=== PATIENT | female | born 1935 | race Caucasian/White ===

== ENCOUNTER → 2017-09-01 | Outpatient (CLI) | payer OTHER | LOC: FIMAGING 11:50 | PROVIDERS: ATTEND Nurse Practitioner Women's Health | DX: Z12.31 Encounter for screening mammogram for malignant neoplasm of breast (principal); Z80.3 Family history of malignant neoplasm of breast | CPT/HCPCS: G0204 ==

== ENCOUNTER 2018-01-22 22:40 | Emergency (ER) | payer OTHER ==
[2018-01-22] MEDS ORDERED: IPRATROPIUM/ALBUTEROL 3 ML DEYVIAL ONE (23:08)
[2018-01-22] MEDS ORDERED: IPRATROPIUM/ALBUTEROL 3 ML DEYVIAL IH ONE (23:09)
[2018-01-22] MEDS ORDERED: predniSONE 20 MG TAB PO ONE (23:22)
--- NOTE | 2018-01-22 23:25 | EDPHY ---
H & P Stated Complaint: resp diff. & urine issues Time Seen by Provider: 01/22/18 22:56 HPI/ROS: HPI The patient presents with cough with wheezing for the last 2 weeks, presenting tonight to the emergency department because believe she is getting worse. She initially was sick about 2 weeks ago with what was thought to be a sinus infection with congestion and cough. She took a course of erythromycin though did not improve. She took Levaquin, however developed diarrhea and that was discontinued. She has been on 2 days of azithromycin now and using her DuoNeb every 4 hr without much improvement in her symptoms. She is wheezing and coughing significantly. She does not have any dyspnea on exertion. She had a chest x-ray performed as an outpatient earlier today which demonstrates segmental airway thickening without any infiltrate. She has not had a fever, sore throat, rhinorrhea. REVIEW OF SYSTEMS Constitutional: No fever, no chills. Eyes: No discharge. ENT: No sore throat. Cardiovascular: No chest pain, no palpitations. Respiratory: See HPI Gastrointestinal: No abdominal pain, no vomiting. Genitourinary: No hematuria. Musculoskeletal: No back pain. Skin: No rashes. Neurological: No headache. PMHx: Asthma, status post valvular replacement, pacemaker in place Soc Hx: Lives at home with PHYSICAL General Appearance: Alert, no distress Eyes: Pupils equal and round no pallor or injection ENT, Mouth: Mucous membranes moist Respiratory: There are no retractions, lungs are clear to auscultation Cardiovascular: Regular rate and rhythm Gastrointestinal: Abdomen is soft and non-tender, no masses, bowel sounds normal Neurological: A&O, moves all extremities Skin: Warm and dry, no rashes Musculoskeletal: Neck is supple non tender Extremities: symmetrical, full range of motion Psychiatric: Patient is oriented X 3, there is no agitation Source: Patient Exam Limitations: No limitations - Personal History Current Tetanus/Diphtheria Vaccine: Yes Current Tetanus Diphtheria and Acellular Pertussis (TDAP): Yes Tetanus Vaccine Date: 2009 - Medical/Surgical History Hx Asthma: Yes Hx Chronic Respiratory Disease: No Hx Diabetes: No Hx Cardiac Disease: Yes Hx Renal Disease: No Hx Cirrhosis: No Hx Alcoholism: No Hx HIV/AIDS: No Hx Splenectomy or Spleen Trauma: No Other PMH: pacemaker, asthma, atrial valve replacement, CVA x2, subdural hematoma,thyroidectomy, appy, hysterectomy, mitral valve replacement, ulcers, colitis, cholecystectomy, bleeding stomach ulcers. - Social History Smoking Status: Never smoked Constitutional: Initial Vital Signs Temperature (C) 36.4 C 01/22/18 22:43 Heart Rate 93 01/22/18 22:43 Respiratory Rate 16 01/22/18 22:43 Blood Pressure 168/99 H 01/22/18 22:43 O2 Sat (%) 92 01/22/18 22:43 O2 Delivery Mode Room Air O2 (L/minute) 2 Allergies/Adverse Reactions: budesonide [From Symbicort] Allergy (Severe, Verified 07/25/16 14:54) Swelling/neck,face,throat formoterol fumarate [From Symbicort] Allergy (Severe, Verified 07/25/16 14:54) Swelling/neck,face,throat atorvastatin calcium [From Lipitor] Allergy (Intermediate, Verified 07/25/16 14: 54) Other-Enter Comments cimetidine [Cimetidine] Allergy (Intermediate, Verified 07/25/16 14:54) Other-Enter Comments fluticasone propionate [From Advair Diskus] Allergy (Intermediate, Verified 14:54) Other-Enter Comments furosemide [From Lasix] Allergy (Intermediate, Verified 07/25/16 14:54) Other-Enter Comments salmeterol xinafoate [From Advair Diskus] Allergy (Intermediate, Verified 14:54) Other-Enter Comments cefuroxime axetil [From Ceftin] Allergy (Unknown, Verified 07/25/16 14:54) Hives cephalexin monohydrate [From Keflex] Allergy (Unknown, Verified 07/25/16 14:54) Hives erythromycin base [Erythromycin Base] Allergy (Unknown, Verified 07/25/16 14:54) Vomiting Lactase [From Dairy Ease] Allergy (Unknown, Verified 07/25/16 14:54) Congestion latex [Latex] Allergy (Unknown, Verified 07/25/16 14:54) Rash Penicillins Allergy (Unknown, Verified 07/25/16 14:54) Hives quinidine [Quinidine] Allergy (Unknown, Verified 07/25/16 14:54) Other-Enter Comments Sulfa (Sulfonamide Antibiotics) Allergy (Unknown, Verified 07/25/16 14:54) Hives ciprofloxacin [Ciprofloxacin] Allergy (Verified 07/25/16 14:54) Unknown montelukast sodium [From Singulair] Allergy (Verified 07/25/16 14:54) Other-Enter Comments pantoprazole [Pantoprazole] Allergy (Verified 07/25/16 14:54) Other-Enter Comments pantoprazole sodium [From Protonix] Allergy (Verified 07/25/16 14:54) Other-Enter Comments Jryyuur-Xij-Hzq Reductase Inhibitor Allergy (Verified 07/25/16 14:54) Unknown SOUR CREAM Allergy (Intermediate, Uncoded 09/17/11 12:18) Hives SUCRAFLATE Allergy (Intermediate, Uncoded 09/17/11 12:18) Other-Enter Comments "MYCINS" Allergy (Unknown, Uncoded 03/09/10 13:43) Vomiting PEANUT BUTTER Allergy (Unknown, Uncoded 03/09/10 13:43) Itching WARFARIN WITH PREDNISONE Allergy (Uncoded 09/17/11 12:18) Other-Enter Comments Home Medications: Medication Instructions Recorded Lanoxin 09/06/09 Plavix 75 mg PO DAILY 09/06/09 Synthroid 0.5 mg PO DAILY 09/06/09 Duoneb (RX) 09/04/15 Mucinex 09/04/15 predniSONE 40 mg PO DAILY 3 Days #6 tab 01/23/18 Medical Decision Making Differential Diagnosis: This is an 82-year-old female with history of asthma, atrial and mitral valve replacement with pacemaker in place who presents with 2 weeks of cough, congestion, wheezing. She has been on several antibiotics without any improvement. She is using nebulizers at home. Differential diagnosis includes asthma with exacerbation, viral URI, pneumonia, less likely pulmonary embolism. In the emergency department, patient was given prednisone, DuoNeb, albuterol. She was observed for nearly 3 hr with no improvement in her symptoms. On repeat examination she had audible expiratory wheezes in all lung pruitt which did not improve. She became quite tachycardic after receiving albuterol. I plan to admit her to the hospitalist for likely asthma exacerbation. D-dimer is slightly elevated though adjusted for age is negative. I feel pulmonary embolism is unlikely in her case. I consulted with the hospitalist Dr. Murcia who came to the emergency department to see the patient. The patient refused admission because she was concerned about cost associated with being admitted for observation verses inpatient stay. Her oxygen saturations are normal though she does continue to have wheezing. After the albuterol, she did develop atrial fibrillation with RVR. I gave her dose of diltiazem with improvement in her rate. She felt well enough to go home and will be given a prescription for prednisone to take in addition to her nebulizer treatments which she can use every 4 hr. She was advised to continue her azithromycin, though it is unclear if it is helping her symptoms at all. - Data Points Laboratory Results: Laboratory Results 01/23/18 00:45 01/23/18 00:45 01/23/18 01/23/18 01/23/18 00:45 00:45 00:45 WBC RBC Hgb Hct MCV MCH MCHC RDW Plt Count MPV Neut % (Auto) Lymph % (Auto) [place] % (Auto) Eos % (Auto) Baso % (Auto) Nucleat RBC Rel Count Absolute Neuts (auto) Absolute Lymphs (auto) Absolute Monos (auto) Absolute Eos (auto) Absolute Basos (auto) Absolute Nucleated RBC Immature Gran % Immature Gran # D-Dimer 0.71 ug/mLFEU H ug/mLFEU (0.00-0.50) Sodium 135 mEq/L mEq/L (135-145) Potassium 4.6 mEq/L mEq/L (3.5-5.2) Chloride 95 mEq/L L mEq/L (97-110) Carbon Dioxide 26 mEq/l mEq/l (22-31) Anion Gap 14 mEq/L mEq/L (8-16) BUN 21 mg/dL mg/dL (7-23) Creatinine 0.7 mg/dL mg/dL (0.6-1.0) Estimated GFR > 60 Glucose 108 mg/dL H mg/dL (70-100) Calcium 10.4 mg/dL mg/dL (8.5-10.4) Total Bilirubin 2.1 mg/dL H mg/dL (0.1-1.4) Conjugated Bilirubin 0.4 mg/dL mg/dL (0.0-0.5) Unconjugated Bilirubin 1.7 mg/dL H mg/dL (0.0-1.1) AST 36 IU/L IU/L (14-46) ALT 33 IU/L IU/L (9-52) Alkaline Phosphatase 116 IU/L IU/L (38-126) Total Protein 8.0 g/dL g/dL (6.3-8.2) Albumin 4.8 g/dL g/dL (3.5-5.0) Procalcitonin 0.04 ng/mL ng/mL (0.02-0.10) 01/23/18 00:45 WBC 7.38 10^3/uL 10^3/uL (3.80-9.50) RBC 4.86 10^6/uL 10^6/uL (4.18-5.33) Hgb 15.3 g/dL g/dL (12.6-16.3) Hct 43.7 % % (38.0-47.0) MCV 89.9 fL fL (81.5-99.8) MCH 31.5 pg pg (27.9-34.1) MCHC 35.0 g/dL g/dL (32.4-36.7) RDW 12.1 % % (11.5-15.2) Plt Count 185 10^3/uL 10^3/uL (150-400) MPV 8.9 fL fL (8.7-11.7) Neut % (Auto) 50.8 % % (39.3-74.2) Lymph % (Auto) 28.7 % % (15.0-45.0) [place] % (Auto) 10.0 % % (4.5-13.0) Eos % (Auto) 9.3 % H % (0.6-7.6) Baso % (Auto) 0.9 % % (0.3-1.7) Nucleat RBC Rel Count 0.0 % % (0.0-0.2) Absolute Neuts (auto) 3.74 10^3/uL 10^3/uL (1.70-6.50) Absolute Lymphs (auto) 2.12 10^3/uL 10^3/uL (1.00-3.00) Absolute Monos (auto) 0.74 10^3/uL 10^3/uL (0.30-0.80) Absolute Eos (auto) 0.69 10^3/uL H 10^3/uL (0.03-0.40) Absolute Basos (auto) 0.07 10^3/uL 10^3/uL (0.02-0.10) Absolute Nucleated RBC 0.00 10^3/uL 10^3/uL (0-0.01) Immature Gran % 0.3 % % (0.0-1.1) Immature Gran # 0.02 10^3/uL 10^3/uL (0.00-0.10) D-Dimer Sodium Potassium Chloride Carbon Dioxide Anion Gap BUN Creatinine Estimated GFR Glucose Calcium Total Bilirubin Conjugated Bilirubin Unconjugated Bilirubin AST ALT Alkaline Phosphatase Total Protein Albumin Procalcitonin Medications Given: Discontinued Medications Albuterol (Proventil Neb) 6 ml IH EDNOW ONE Stop: 01/22/18 23:37 Last Admin: 01/22/18 23:38 Dose: 6 ml Albuterol (Proventil Neb) 3 ml IH Q4HRS JEANMARIE Stop: 07/22/18 01:59 Last Admin: 01/23/18 02:52 Dose: Not Given Albuterol/Ipratropium (Duoneb) 3 ml IH EDNOW ONE Stop: 01/22/18 23:10 Last Admin: 01/22/18 23:12 Dose: 3 ml Diltiazem HCl (Cardizem) 15 mg IV EDNOW ONE Stop: 01/23/18 02:16 Last Admin: 01/23/18 02:08 Dose: 15 mg Sodium Chloride (Ns) 250 mls @ 1,000 mls/hr IV EDNOW ONE PRN Reason: Protocol Stop: 01/23/18 02:17 Last Admin: 01/23/18 02:07 Dose: 250 mls Prednisone (Prednisone) 40 mg PO EDNOW ONE Stop: 01/22/18 23:23 Last Admin: 01/22/18 23:38 Dose: 40 mg Departure - Departure Disposition: Home, Routine, Self-Care Clinical Impression: Atrial fibrillation with RVR Exacerbation of asthma Qualifiers: Asthma severity: moderate Asthma persistence: unspecified Qualified Code(s): J45.901 - Unspecified asthma with (acute) exacerbation Acute bronchitis Qualifiers: Bronchitis organism: unspecified organism Qualified Code(s): J20.9 - Acute bronchitis, unspecified Condition: Fair Instructions: Bronchospasm (ED) Additional Instructions: Please return to the emergency department if you are worse in any way. Referrals: Laura Sterling [Primary Care Provider] - As per Instructions Prescriptions: predniSONE 40 mg PO DAILY 3 Days #6 tab
[2018-01-22] MEDS ORDERED: ALBUTEROL 3 ML DEYVIAL ONE (23:35)
[2018-01-22] MEDS ORDERED: ALBUTEROL 3 ML DEYVIAL IH ONE (23:36)
--- NOTE | 2018-01-23 00:33 | CPEKG ---
Heart Rate: 140 RR Interval: 429 QRSD Interval: 142 QT Interval: 340 QTC Interval: 519 QRS [place]: -37 T Wave [place]: 246 EKG Severity - ABNORMAL ECG - EKG Impression: ATRIAL FIBRILLATION, V-RATE 101-170 EKG Impression: PAIRED VENTRICULAR PREMATURE COMPLEXES EKG Impression: ABERRANT COMPLEX, POSSIBLY SUPRAVENTRICULAR EKG Impression: NONSPECIFIC IVCD WITH LAD EKG Impression: LVH WITH SECONDARY REPOLARIZATION ABNORMALITY Electronically Signed By: Roula Kenney 23-Jan-2018 07:05:35
[2018-01-23 01:01] LABS: PLATELET COUNT 185 10^3/uL (150-400)
[2018-01-23] MEDS ORDERED: DILTIAZEM 25 MG/5 ML VIAL IVP ONE (01:32)
[2018-01-23] MEDS ORDERED: ALBUTEROL 3 ML DEYVIAL IH PRN (01:34)
[2018-01-23] MEDS ORDERED: ONDANSETRON 4 MG/2 ML VIAL IVP PRN (01:34)
[2018-01-23] MEDS ORDERED: ONDANSETRON DISINTEGRATING 4 MG TAB PO PRN (01:34)
[2018-01-23] MEDS ORDERED: ACETAMINOPHEN 325 MG TAB PO PRN (01:34)
[2018-01-23 01:53] VITALS: TEMP 98.1
[2018-01-23] MEDS ORDERED: DILTIAZEM 50 MG/10 ML VIAL IV ONE ×2 (01:59→02:15)
[2018-01-23] MEDS ORDERED: ALBUTEROL 3 ML DEYVIAL IH SCH (02:00)
[2018-01-23] MEDS ORDERED: NS 250 ML IV ONE (02:03)
[2018-01-23 02:49] VITALS: BP 122/67; PULSE 92; RESP 18; O2SAT 92
[2018-01-23] MEDS ORDERED: ENOXAPARIN 40 MG/0.4 ML SYR SC SCH (09:00)
[2018-01-23] MEDS ORDERED: predniSONE 20 MG TAB PO SCH (09:00)
== END 2018-01-23 02:48 | disposition home or self-care (01) ==
LOC: UNDOADMOB 01-23 01:33 → INTOOBSV 01-23 01:33 → UNDOADMOB 01-23 01:34
DX: J45.901 Unspecified asthma with (acute) exacerbation (principal); I48.91 Unspecified atrial fibrillation; J20.9 Acute bronchitis, unspecified; E86.9 Volume depletion, unspecified; Z86.73 Personal history of transient ischemic attack (TIA), and cerebral infarction without residual deficits; Z91.010 Allergy to peanuts; Z95.0 Presence of cardiac pacemaker; Z91.040 Latex allergy status
CPT/HCPCS: 93005; 96361; 96374; 99284; J7512; J7613

== ENCOUNTER → 2018-01-22 | Outpatient (CLI) | payer OTHER | LOC: FIMAGING 14:58 | PROVIDERS: ATTEND Physician Assistant Medical | DX: J98.4 Other disorders of lung (principal); J45.901 Unspecified asthma with (acute) exacerbation ==

== ENCOUNTER → 2018-03-18 | Outpatient (CLI) | payer OTHER | LOC: FIMAGING 16:46 | PROVIDERS: ATTEND Family Medicine | DX: J32.9 Chronic sinusitis, unspecified (principal) ==

== ENCOUNTER → 2018-09-02 | Outpatient (CLI) | payer OTHER | LOC: FIMAGING 09:59 | PROVIDERS: ATTEND Family Medicine | DX: Z12.31 Encounter for screening mammogram for malignant neoplasm of breast (principal); Z80.3 Family history of malignant neoplasm of breast ==

== ENCOUNTER 2018-09-10 16:26 | Emergency (ER) | payer OTHER ==
--- NOTE | 2018-09-10 17:09 | EDPHY ---
H & P Stated Complaint: mechanical fall head trauma/ pelvic pain lwrist pain/ on plavix Time Seen by Provider: 09/10/18 17:08 HPI/ROS: CHIEF COMPLAINT: Head injury HISTORY OF PRESENT ILLNESS: 83-year-old female via private vehicle with her complaining of facial and head injury after she slipped on gravel while leaving the [facility]. She fell onto her face, head. She is complaining of headache , forehead laceration, left mandible pain, left wrist pain, left hand pain, left tibia and fibula pain, right pelvic pain, right knee pain. She is unable to ambulate. Her carried her into the car. She comes back to the room via a wheelchair. She denies acute alcohol or drug use. This was a mechanical non syncopal episode. PRIMARY CARE PROVIDER: Dr. 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 denies alcohol use at time of incident PHYSICAL EXAM 1) GENERAL: Well-developed, well-nourished, alert and oriented. Appears uncomfortable . 2) HEAD: Normocephalic, atraumatic 3) HEENT: Pupils equal, round, reactive to light bilaterally. Left frontal hematoma, left frontal laceration on left lateral eyebrow laceration. No hyphema. No proptosis. No evidence of orbital injury. Negative Horners. Nasopharynx, oropharynx, clear. No deformity or angulation of nose. No septal hematoma. No rhinorrhea. No oral trauma. Ears bilaterally with normal tympanic membranes. No hemotympanum. No fluid or blood in the external auditory canal. No raccoon eyes. No Partida sign. Teeth are normally aligned with no gross malocclusion, TMJ bilaterally nontender, facial bones nontender including the zygomatic arch, maxilla mandible. 4) NECK: No cervical collar is on. Posterior cervical spine is nontender, no stepoff, no effusion. Full range of motion which does not elicit any midline cervical spine pain, no posterior midline tenderness, no step-off. Cervical collar is placed due to mechanism 5) LUNGS: Clear to auscultation bilaterally, no wheezes, no rhonchi, no retractions. No obvious signs of trauma. No chest wall pain. No flaring, no grunting. Moving symmetrically. No crepitus. 6) HEART: Regular rate and rhythm, 7) ABDOMEN: No guarding, no rebound, no focal tenderness, no peritoneal signs, no signs of trauma, no ecchymosis 8) MUSCULOSKELETAL: Left upper extremity: The left dorsal wrist skin tear, hematoma, underlying pain. No deformity. Right upper extremity: No evidence of trauma no pain Right lower extremity: No deformity no angulation. Tender to palpation right greater trochanteric and right inguinal region. Buttock nontender. Right knee tender to palpation with limited range of motion secondary to pain. No deformity no angulation. Distal neurovascular status intact packed with DP PT pulses present and brisk. Left lower extremity: Tender to palpation left distal tibia and fibula and left ankle. No proximal tibia or fibula pain. No knee pain. No hip pain. No shortening no malrotation. DP PT pulses present and brisk. 9) BACK: No midline vertebral tenderness, no fluctuance, no step-off, no obvious trauma, no visual or palpable abnormality. 10) SKIN: Forehead laceration DIFFERENTIAL DIAGNOSIS: Not necessarily in any particular order, my differential diagnosis includes, but is not limited to, concussion, skull fracture, intraparenchymal contusion, subarachnoid, subdural and epidural hematoma. The patient understands that this diagnosis is provisional and can never be 100% accurate. - Personal History Current Tetanus Diphtheria and Acellular Pertussis (TDAP): Yes Tetanus Vaccine Date: 2009 - Medical/Surgical History Hx Asthma: Yes Hx Chronic Respiratory Disease: No Hx Diabetes: No Hx Cardiac Disease: Yes Hx Renal Disease: No Hx Cirrhosis: No Hx Alcoholism: No Hx HIV/AIDS: No Hx Splenectomy or Spleen Trauma: No Other PMH: pacemaker, asthma, atrial valve replacement, CVA x2, subdural hematoma,thyroidectomy, appy, hysterectomy, mitral valve replacement, ulcers, colitis, cholecystectomy, bleeding stomach ulcers. - Social History Smoking Status: Never smoked Constitutional: Initial Vital Signs Temperature (C) 36.7 C 09/10/18 16:45 Heart Rate 88 09/10/18 16:45 Respiratory Rate 18 09/10/18 16:45 Blood Pressure 170/98 H 09/10/18 16:45 O2 Sat (%) 94 09/10/18 16:45 O2 Delivery Mode Room Air Allergies/Adverse Reactions: budesonide [From Symbicort] Allergy (Severe, Verified 09/10/18 16:44) Swelling/neck,face,throat formoterol fumarate [From Symbicort] Allergy (Severe, Verified 09/10/18 16:44) Swelling/neck,face,throat atorvastatin calcium [From Lipitor] Allergy (Intermediate, Verified 09/10/18 16: 44) Other-Enter Comments cimetidine [Cimetidine] Allergy (Intermediate, Verified 09/10/18 16:44) Other-Enter Comments fluticasone propionate [From Advair Diskus] Allergy (Intermediate, Verified 16:44) Other-Enter Comments furosemide [From Lasix] Allergy (Intermediate, Verified 09/10/18 16:44) Other-Enter Comments salmeterol xinafoate [From Advair Diskus] Allergy (Intermediate, Verified 16:44) Other-Enter Comments cefuroxime axetil [From Ceftin] Allergy (Unknown, Verified 09/10/18 16:44) Hives cephalexin monohydrate [From Keflex] Allergy (Unknown, Verified 09/10/18 16:44) Hives erythromycin base [Erythromycin Base] Allergy (Unknown, Verified 09/10/18 16:44) Vomiting Lactase [From Dairy Ease] Allergy (Unknown, Verified 09/10/18 16:44) Congestion latex [Latex] Allergy (Unknown, Verified 09/10/18 16:44) Rash Penicillins Allergy (Unknown, Verified 09/10/18 16:44) Hives quinidine [Quinidine] Allergy (Unknown, Verified 09/10/18 16:44) Other-Enter Comments Sulfa (Sulfonamide Antibiotics) Allergy (Unknown, Verified 09/10/18 16:44) Hives ciprofloxacin [Ciprofloxacin] Allergy (Verified 09/10/18 16:44) Unknown montelukast sodium [From Singulair] Allergy (Verified 09/10/18 16:44) Other-Enter Comments pantoprazole [Pantoprazole] Allergy (Verified 09/10/18 16:44) Other-Enter Comments pantoprazole sodium [From Protonix] Allergy (Verified 09/10/18 16:44) Other-Enter Comments Lwtqiuz-Lrj-Lnu Reductase Inhibitor Allergy (Verified 09/10/18 16:44) Unknown SOUR CREAM Allergy (Intermediate, Uncoded 09/17/11 12:18) Hives SUCRAFLATE Allergy (Intermediate, Uncoded 09/17/11 12:18) Other-Enter Comments "MYCINS" Allergy (Unknown, Uncoded 03/09/10 13:43) Vomiting PEANUT BUTTER Allergy (Unknown, Uncoded 03/09/10 13:43) Itching WARFARIN WITH PREDNISONE Allergy (Uncoded 09/17/11 12:18) Other-Enter Comments Home Medications: Medication Instructions Recorded Clopidogrel Bisulfate [Plavix (*)] 75 mg PO DAILY 09/10/18 Digoxin [Lanoxin] 250 mcg PO DAILY 09/10/18 Levothyroxine [Synthroid 75 mcg 75 mcg PO DAILY06 09/10/18 (*)] diphenhydrAMINE [Benadryl 25 MG 25 mg PO Q6H PRN 09/10/18 (*)] Medical Decision Making - Diagnostics Imaging Results: Imaging Impressions Ankle X-Ray 09/10/18 00:00 Impression: Nothing acute identified. 2. Right Tibia-Fibula, 2 views History: Pain post fall today Findings: No fracture is identified. There is a likely chronic small osteochondral defect of the mid talar dome seen on the lateral view. There is soft tissue swelling of the calf. Impression: No fracture. 3. Left Ankle, 3 views History: Fall today, pain Findings: No fracture or malalignment is identified. There is no ankle joint effusion. Impression: Negative. 4. AP Portable Chest, 18:02 History: Pain post fall today Findings: The patient is rotated toward the left. There is a moderate thoracolumbar dextroscoliosis. There is no pneumothorax pleural effusion or pulmonary contusion. No obvious acute fracture is identified. A left chest wall pacer device and associated bipolar pacer leads are present. Median sternotomy wires and CABG clips are also present. There may be, mild cardiomegaly. There is no evidence for CHF. There is atherosclerotic calcification in the aortic arch. Impression: No posttraumatic abnormality identified. 5. Left Wrist, 3 views History: Pain post fall today Findings: The pisiform bone is palmary dislocated from the triquetrum. There is possibly a rotatory subluxation of the navicular bone. I do not identify an acute fracture. Impression: 1. Pisiform dislocation 2. Suspect rotatory subluxation of the navicular. 6. Right Ankle, 3 views History: Pain post fall today. Findings: No acute fracture, malalignment or ankle joint effusion is identified. 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 Impression: Nothing acute identified. Cervical Spine CT 09/10/18 17:18 Impression: 1. No acute cervical spine fracture identified. Results called to Chai Moss PA-C, 7:[address] 09/10/18 17:18 Impression: 1. Negative for fracture. Results called to Chai Moss PA-C, at 7:[address] 09/10/18 17:18 Impression: Stable noncontrast CT of the brain large areas of encephalomalacia in the temporal regions bilaterally. Subcutaneous hemorrhage over the left orbit and extending into the frontal region. Results called to Chai Moss PA-C at the time of the interpretation. Chest X-Ray 09/10/18 17:19 Impression: Nothing acute identified. 2. Right Tibia-Fibula, 2 views History: Pain post fall today Findings: No fracture is identified. There is a likely chronic small osteochondral defect of the mid talar dome seen on the lateral view. There is soft tissue swelling of the calf. Impression: No fracture. 3. Left Ankle, 3 views History: Fall today, pain Findings: No fracture or malalignment is identified. There is no ankle joint effusion. Impression: Negative. 4. AP Portable Chest, 18:02 History: Pain post fall today Findings: The patient is rotated toward the left. There is a moderate thoracolumbar dextroscoliosis. There is no pneumothorax pleural effusion or pulmonary contusion. No obvious acute fracture is identified. A left chest wall pacer device and associated bipolar pacer leads are present. Median sternotomy wires and CABG clips are also present. There may be, mild cardiomegaly. There is no evidence for CHF. There is atherosclerotic calcification in the aortic arch. Impression: No posttraumatic abnormality identified. 5. Left Wrist, 3 views History: Pain post fall today Findings: The pisiform bone is palmary dislocated from the triquetrum. There is possibly a rotatory subluxation of the navicular bone. I do not identify an acute fracture. Impression: 1. Pisiform dislocation 2. Suspect rotatory subluxation of the navicular. 6. Right Ankle, 3 views History: Pain post fall today. Findings: No acute fracture, malalignment or ankle joint effusion is identified. 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 Impression: Nothing acute identified. Knee X-Ray 09/10/18 17:19 Impression: Nothing obviously acute identified. Pelvis X-Ray 09/10/18 17:19 Impression: Nothing acute identified. 2. Right Tibia-Fibula, 2 views History: Pain post fall today Findings: No fracture is identified. There is a likely chronic small osteochondral defect of the mid talar dome seen on the lateral view. There is soft tissue swelling of the calf. Impression: No fracture. 3. Left Ankle, 3 views History: Fall today, pain Findings: No fracture or malalignment is identified. There is no ankle joint effusion. Impression: Negative. 4. AP Portable Chest, 18:02 History: Pain post fall today Findings: The patient is rotated toward the left. There is a moderate thoracolumbar dextroscoliosis. There is no pneumothorax pleural effusion or pulmonary contusion. No obvious acute fracture is identified. A left chest wall pacer device and associated bipolar pacer leads are present. Median sternotomy wires and CABG clips are also present. There may be, mild cardiomegaly. There is no evidence for CHF. There is atherosclerotic calcification in the aortic arch. Impression: No posttraumatic abnormality identified. 5. Left Wrist, 3 views History: Pain post fall today Findings: The pisiform bone is palmary dislocated from the triquetrum. There is possibly a rotatory subluxation of the navicular bone. I do not identify an acute fracture. Impression: 1. Pisiform dislocation 2. Suspect rotatory subluxation of the navicular. 6. Right Ankle, 3 views History: Pain post fall today. Findings: No acute fracture, malalignment or ankle joint effusion is identified. 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 Impression: Nothing acute identified. Ankle X-Ray 09/10/18 17:20 Impression: Nothing acute identified. 2. Right Tibia-Fibula, 2 views History: Pain post fall today Findings: No fracture is identified. There is a likely chronic small osteochondral defect of the mid talar dome seen on the lateral view. There is soft tissue swelling of the calf. Impression: No fracture. 3. Left Ankle, 3 views History: Fall today, pain Findings: No fracture or malalignment is identified. There is no ankle joint effusion. Impression: Negative. 4. AP Portable Chest, 18:02 History: Pain post fall today Findings: The patient is rotated toward the left. There is a moderate thoracolumbar dextroscoliosis. There is no pneumothorax pleural effusion or pulmonary contusion. No obvious acute fracture is identified. A left chest wall pacer device and associated bipolar pacer leads are present. Median sternotomy wires and CABG clips are also present. There may be, mild cardiomegaly. There is no evidence for CHF. There is atherosclerotic calcification in the aortic arch. Impression: No posttraumatic abnormality identified. 5. Left Wrist, 3 views History: Pain post fall today Findings: The pisiform bone is palmary dislocated from the triquetrum. There is possibly a rotatory subluxation of the navicular bone. I do not identify an acute fracture. Impression: 1. Pisiform dislocation 2. Suspect rotatory subluxation of the navicular. 6. Right Ankle, 3 views History: Pain post fall today. Findings: No acute fracture, malalignment or ankle joint effusion is identified. 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 Impression: Nothing acute identified. Hand X-Ray 09/10/18 17:20 Impression: Transverse mildly displaced fracture proximal aspect, proximal phalanx, left fifth finger. Tibia/Fibula X-Ray 09/10/18 17:20 Impression: Nothing acute identified. 2. Right Tibia-Fibula, 2 views History: Pain post fall today Findings: No fracture is identified. There is a likely chronic small osteochondral defect of the mid talar dome seen on the lateral view. There is soft tissue swelling of the calf. Impression: No fracture. 3. Left Ankle, 3 views History: Fall today, pain Findings: No fracture or malalignment is identified. There is no ankle joint effusion. Impression: Negative. 4. AP Portable Chest, 18:02 History: Pain post fall today Findings: The patient is rotated toward the left. There is a moderate thoracolumbar dextroscoliosis. There is no pneumothorax pleural effusion or pulmonary contusion. No obvious acute fracture is identified. A left chest wall pacer device and associated bipolar pacer leads are present. Median sternotomy wires and CABG clips are also present. There may be, mild cardiomegaly. There is no evidence for CHF. There is atherosclerotic calcification in the aortic arch. Impression: No posttraumatic abnormality identified. 5. Left Wrist, 3 views History: Pain post fall today Findings: The pisiform bone is palmary dislocated from the triquetrum. There is possibly a rotatory subluxation of the navicular bone. I do not identify an acute fracture. Impression: 1. Pisiform dislocation 2. Suspect rotatory subluxation of the navicular. 6. Right Ankle, 3 views History: Pain post fall today. Findings: No acute fracture, malalignment or ankle joint effusion is identified. 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 Impression: Nothing acute identified. Wrist X-Ray 09/10/18 17:20 Impression: Nothing acute identified. 2. Right Tibia-Fibula, 2 views History: Pain post fall today Findings: No fracture is identified. There is a likely chronic small osteochondral defect of the mid talar dome seen on the lateral view. There is soft tissue swelling of the calf. Impression: No fracture. 3. Left Ankle, 3 views History: Fall today, pain Findings: No fracture or malalignment is identified. There is no ankle joint effusion. Impression: Negative. 4. AP Portable Chest, 18:02 History: Pain post fall today Findings: The patient is rotated toward the left. There is a moderate thoracolumbar dextroscoliosis. There is no pneumothorax pleural effusion or pulmonary contusion. No obvious acute fracture is identified. A left chest wall pacer device and associated bipolar pacer leads are present. Median sternotomy wires and CABG clips are also present. There may be, mild cardiomegaly. There is no evidence for CHF. There is atherosclerotic calcification in the aortic arch. Impression: No posttraumatic abnormality identified. 5. Left Wrist, 3 views History: Pain post fall today Findings: The pisiform bone is palmary dislocated from the triquetrum. There is possibly a rotatory subluxation of the navicular bone. I do not identify an acute fracture. Impression: 1. Pisiform dislocation 2. Suspect rotatory subluxation of the navicular. 6. Right Ankle, 3 views History: Pain post fall today. Findings: No acute fracture, malalignment or ankle joint effusion is identified. 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 Impression: Nothing acute identified. Images reviewed myself Procedures: Procedure: Laceration repair 1. I explained the indications, risks and benefits for both laceration repair and anesthetic administration. Verbal consent was obtained from the patient. The 2.5 cm laceration on the left forehead was anesthetized using 0.5% bupivicaine with epinephrine. After anesthetic administered the patient was observed for a period of time and had no apparent adverse effects. The wound was cleaned, prepped, draped in normal sterile fashion and explored to its base. No foreign body seen, no foreign bodies palpated. There were no deep structures involved. The wound was repaired with 4 simple interrupted 6-0 prolene sutures. The wound repair was complex. The procedure was performed by myself. Patient has been informed that scarring will occur, although efforts have been made to minimize this. Procedure: Laceration repair 2. I explained the indications, risks and benefits for both laceration repair and anesthetic administration. Verbal consent was obtained from the patient. The 1.5 cm laceration on the left lateral eyebrow region was anesthetized using 0.5 % bupivicaine with epinephrine. Does not extend to the lid margin. After anesthetic administered the patient was observed for a period of time and had no apparent adverse effects. The wound was cleaned, prepped, draped in normal sterile fashion and explored to its base. No foreign body seen, no foreign bodies palpated. There were no deep structures involved. No tendon injury was identified. The wound was repaired with 3 simple interrupted 6 0 Prolene suture. The wound repair was simple. The procedure was performed by myself. Patient has been informed that scarring will occur, although efforts have been made to minimize this. ED Course/Re-evaluation: 5:15 p.m.: Head CT ordered in this patient for trauma for the following indication: Greater than 65 years old, anticoagulated 8:17 p.m.: Electronic consultation with Dr. Maicol Rosario, on-call hand surgery for the patient's pisiform dislocation. He recommended splinting and follow- up. The patient is also noted to have a closed fracture of her proximal 5th phalanx of left hand. She does have a superficial skin tear on the dorsum of the left wrist. Doubt open fracture or open dislocation. Patient was re-evaluated with serial examinations, she is answering questions appropriately. She would like to be discharged. Patient has been offered admission on numerous instances. She and have declined this. feels comfortable caring for her at home. She was able to ambulate to the bathroom by herself although she did see need some assistance from staff getting out of bed. feels secure that he can take care of her at home. I believe him and his /patient to have decision- making capacity. Sutures to be removed in 5 days. - Data Points Laboratory Results: Laboratory Results 09/10/18 17:30 09/10/18 17:30 09/10/18 09/10/18 09/10/18 17:35 17:30 17:30 WBC RBC Hgb POC Hgb 15.3 gm/dL gm/dL (12.6-16.3) Hct POC Hct 45 % % (38-47) MCV MCH MCHC RDW Plt Count MPV Neut % (Auto) Lymph % (Auto) Pettis % (Auto) Eos % (Auto) Baso % (Auto) Nucleat RBC Rel Count Absolute Neuts (auto) Absolute Lymphs (auto) Absolute Monos (auto) Absolute Eos (auto) Absolute Basos (auto) Absolute Nucleated RBC Immature Gran % Immature Gran # PT 13.1 SEC SEC (12.0-15.0) INR 0.97 (0.83-1.16) APTT 28.7 SEC SEC (23.0-38.0) POC Sodium 135 mEq/L mEq/L (135-145) Sodium 133 mEq/L L mEq/L (135-145) POC Potassium 4.1 mEq/L mEq/L (3.3-5.0) Potassium 4.4 mEq/L mEq/L (3.3-5.0) POC Chloride 96 mEq/L L mEq/L (97-110) Chloride 96 mEq/L L mEq/L (97-110) Carbon Dioxide 27 mEq/l mEq/l (22-31) Anion Gap 10 mEq/L mEq/L (6-14) POC BUN 19 mg/dL mg/dL (7-23) BUN 19 mg/dL mg/dL (7-23) Creatinine 0.9 mg/dL mg/dL (0.6-1.0) POC Creatinine 0.9 mg/dL mg/dL (0.6-1.0) Estimated GFR 60 Glucose 100 mg/dL mg/dL (70-100) POC Glucose 102 mg/dL H mg/dL (70-100) Calcium 10.3 mg/dL mg/dL (8.5-10.4) 09/10/18 17:30 WBC 6.29 10^3/uL 10^3/uL (3.80-9.50) RBC 4.69 10^6/uL 10^6/uL (4.18-5.33) Hgb 14.9 g/dL g/dL (12.6-16.3) POC Hgb Hct 42.7 % % (38.0-47.0) POC Hct MCV 91.0 fL fL (81.5-99.8) MCH 31.8 pg pg (27.9-34.1) MCHC 34.9 g/dL g/dL (32.4-36.7) RDW 12.7 % % (11.5-15.2) Plt Count 202 10^3/uL 10^3/uL (150-400) MPV 8.7 fL fL (8.7-11.7) Neut % (Auto) 69.2 % % (39.3-74.2) Lymph % (Auto) 18.4 % % (15.0-45.0) Pettis % (Auto) 9.9 % % (4.5-13.0) Eos % (Auto) 1.7 % % (0.6-7.6) Baso % (Auto) 0.6 % % (0.3-1.7) Nucleat RBC Rel Count 0.0 % % (0.0-0.2) Absolute Neuts (auto) 4.35 10^3/uL 10^3/uL (1.70-6.50) Absolute Lymphs (auto) 1.16 10^3/uL 10^3/uL (1.00-3.00) Absolute Monos (auto) 0.62 10^3/uL 10^3/uL (0.30-0.80) Absolute Eos (auto) 0.11 10^3/uL 10^3/uL (0.03-0.40) Absolute Basos (auto) 0.04 10^3/uL 10^3/uL (0.02-0.10) Absolute Nucleated RBC 0.00 10^3/uL 10^3/uL (0-0.01) Immature Gran % 0.2 % % (0.0-1.1) Immature Gran # 0.01 10^3/uL 10^3/uL (0.00-0.10) PT INR APTT POC Sodium Sodium POC Potassium Potassium POC Chloride Chloride Carbon Dioxide Anion Gap POC BUN BUN Creatinine POC Creatinine Estimated GFR Glucose POC Glucose Calcium Point of Care Test Results: Chemistry 09/10/18 17:35 POC Sodium 135 mEq/L mEq/L (135-145) POC Potassium 4.1 mEq/L mEq/L (3.3-5.0) POC Chloride 96 mEq/L L mEq/L (97-110) POC BUN 19 mg/dL mg/dL (7-23) POC Creatinine 0.9 mg/dL mg/dL (0.6-1.0) POC Glucose 102 mg/dL H mg/dL (70-100) ISTAT H&H 09/10/18 17:35 POC Hgb 15.3 gm/dL gm/dL (12.6-16.3) POC Hct 45 % % (38-47) Departure - Departure Disposition: Home, Routine, Self-Care Clinical Impression: Pisiform dislocation Head injury Qualifiers: Encounter type: initial encounter Qualified Code(s): S09.90XA - Unspecified injury of head, initial encounter Finger fracture, left Qualifiers: Encounter type: initial encounter Finger: little finger Fracture type: closed Phalanx: proximal Fracture alignment: displaced Qualified Code(s): S62.617A - Displaced fracture of proximal phalanx of left little finger, initial encounter for closed fracture Facial laceration Qualifiers: Encounter type: initial encounter Qualified Code(s): S01.81XA - Laceration without foreign body of other part of head, initial encounter Condition: Good Instructions: Laceration (ED), Head Injury (ED) Additional Instructions: ALTHOUGH THERE IS NO EVIDENCE OF SERIOUS HEAD INJURY AT THIS TIME, DELAYED SIGNS CAN APPEAR 24 TO 48 HOURS AFTER INJURY. PLEASE RETURN TO THE EMERGENCY DEPARTMENT (ED) IMMEDIATELY IF YOU HAVE INCREASED HEADACHE, PERSISTENT HEADACHE , VOMITING, WEAKNESS, CONFUSION OR VISUAL PROBLEMS. WE RECOMMEND THAT YOU DO NOT RESUME CONTACT SPORTS OR ACTIVITIES THAT TAKE COORDINATION OR BALANCE SUCH SKIING OR RIDING A BICYCLE UNTIL CLEARED TO DO SO BY YOUR DOCTOR OR BY A NEUROLOGIST. Referrals: Laura Sterling [Primary Care Provider] - As per Instructions Return, to the ER in 5 days for suture removal [Other] - As per Instructions
[2018-09-10 17:35] LABS: PLATELET COUNT 202 10^3/uL (150-400)
[2018-09-10 17:43] LABS: INR 0.97 (0.83-1.16); PROTIME(PATIENT) 13.1 SEC (12.0-15.0)
[2018-09-10 21:42] VITALS: BP 144/69
== END 2018-09-10 21:36 | disposition home or self-care (01) ==
PROC: 0HQ1XZZ Repair Face Skin, External Approach (ICD-10-PCS; principal; 2018-09-10)
PROC: 2W3DX1Z Immobilization of Left Lower Arm using Splint (ICD-10-PCS; 2018-09-10)
DX: S01.81XA Laceration without foreign body of other part of head, initial encounter (principal); S01.112A Laceration without foreign body of left eyelid and periocular area, initial encounter; S62.617A Displaced fracture of proximal phalanx of left little finger, initial encounter for closed fracture; Z79.01 Long term (current) use of anticoagulants; W01.0XXA Fall on same level from slipping, tripping and stumbling without subsequent striking against object, initial encounter; Y92.39 Other specified sports and athletic area as the place of occurrence of the external cause; Y93.9 Activity, unspecified; Y99.9 Unspecified external cause status
CPT/HCPCS: 12013; 29125; 70450; 70486; 71046; 72125; 72170; 73110; 73130; 73564; 73590; 73610; L0172; 82435-PO; 82565-PO; 82947-PO; 84132-PO; 84295-PO; 84520-PO; 85014-PO